=== PATIENT | male | born 1965 | race Hispanic/Latino ===

== ENCOUNTER 2025-10-21 01:55 | Emergency (ER) | payer OTHER, SELFPAY ==
[2025-10-21] MEDS ORDERED: Lidocaine Viscous Sol 2% 15 ml UD Cup ONE (02:17)
[2025-10-21 02:42] LABS: Bacteria/HPF Rare-Few HPF (None Seen); CAUTI Indications for Culture Dysuria,urgency,freq; Glucose, Urine (Dipstick) Negative (Negative); Leukocyte Negative (Negative); Protein, Urine (Dipstick) Negative (Neg-Trace); RBC/HPF None Seen HPF (0-3); Specific Gravity, Urine 1.015 (1.005-1.030); WBC/HPF None Seen HPF (0-3)
[2025-10-21 02:43] LABS: Urine Culture Reflex No No
== END 2025-10-21 03:15 | disposition home or self-care (01) ==
LOC: BURERS 01:55
DX: R33.9 Retention of urine, unspecified (principal); I10 Essential (primary) hypertension; E78.5 Hyperlipidemia, unspecified; I25.2 Old myocardial infarction; Z79.82 Long term (current) use of aspirin; Z79.899 Other long term (current) drug therapy
CPT/HCPCS: 51702; 81001; 99283